=== PATIENT | female | born 1985 | race Hispanic/Latino ===

== ENCOUNTER 2019-07-10 07:11 | Inpatient (IN) | payer BC ==
[~2019-07-10] VITALS: Ht 154.9 cm; Wt 87.5 kg
[2019-07-10] MEDS ORDERED: LACTATED RINGERS 1000ML 1,000 ML IV PRN (08:02)
[2019-07-10] MEDS ORDERED: ROPIVACAINE 0.2% 100ML VIAL 100 ML EP SCH (08:15)
[2019-07-10] MEDS ORDERED: OXYTOCIN 10 USP UNITS/ML 20 UNIT in LACTATED RINGERS 1000ML 1,000 ML IV SCH (08:15)
[2019-07-10] MEDS ORDERED: NALOXONE HCL 0.4 MG/1 ML ML IV PRN (08:15)
[2019-07-10] MEDS ORDERED: EPHEDRINE SULFATE 50 MG/ML AMPULE IVP PRN (08:15)
[2019-07-10] MEDS ORDERED: PROMETHAZINE HCL 25 MG/ML 1ML AMPULE IM PRN (08:15)
[2019-07-10] MEDS ORDERED: MEPERIDINE-PF 50 MG/ML SYG IVP PRN (08:15)
[2019-07-10] MEDS ORDERED: LACTATED RINGERS 500 ML 500 ML IV PRN (08:15)
[2019-07-10] MEDS ORDERED: OXYTOCIN-LR 20 UNITS/1000 ML 1,000 ML IV SCH (08:15)
[2019-07-10 08:16] LABS: HEMATOCRIT 31.3 % (36-48); MEAN CORPUSCULAR HGB CONC 33.6 g/dL (32.0-36.0); MEAN CORPUSCULAR VOLUME 83.3 fL (79-99); NUCLEATED RED BLOOD CELLS 0.1 % (0.0-0.19); PLATELET COUNT (AUTO) 361 K/uL (130-400); RED BLOOD CELL COUNT(AUTO) 3.76 MIL/uL (4.00-5.50); RED CELL DISTRIBUTION WIDTH 14.5 % (11.0-15.5); WHITE BLOOD COUNT (AUTO) 9.4 K/uL (4.8-10.8)
[2019-07-10 08:24] LABS: APPEARANCE,URINE Clear (CLEAR); BILIRUBIN,URINE Negative (NEGATIVE); COLOR,URINE Yellow (YELLOW); GLUCOSE, URINE (UA) Negative (NEGATIVE); KETONES,URINE Negative (NEGATIVE); LEUKOCYTE ESTERASE ,URINE Moderate (NEGATIVE); NITRATE,URINE Negative (NEGATIVE); OCCULT BLOOD,URINE Small (NEGATIVE); PROTEIN,URINE Trace mg/dL (NEGATIVE)
[2019-07-10 08:31] LABS: AMPHET/METH SCREEN,URINE NEGATIVE (NEGATIVE); BARBITURATE SCREEN, URINE NEGATIVE (NEGATIVE); BENZODIAZEPINES SCREEN,URINE NEGATIVE (NEGATIVE); CANNABINOID SCREEN,URINE NEGATIVE (NEGATIVE); COCAINE SCREEN,URINE NEGATIVE (NEGATIVE); OPIATE SCREEN,URINE POSITIVE (NEGATIVE); PHENCYCLIDINE SCREEN,URINE NEGATIVE (NEGATIVE)
[2019-07-10 08:45] LABS: BACTERIA,URINE Rare /HPF (None Seen); SQUAMOUS EPITHELIAL CELL,UR Few /HPF (0-2); WBC,URINE 0-1 /HPF (0-1)
[2019-07-11 07:12] LABS: HEPATITIS Bs ANTIGEN SCREEN P Negative (Negative)
== END 2019-07-10 17:55 | disposition home or self-care (01) | DRG 951 ==
LOC: LDH 07:11
PROVIDERS: ADMIT Specialist; ATTEND Specialist
DX: Z34.83 Encounter for supervision of other normal pregnancy, third trimester (principal); Z3A.39 39 weeks gestation of pregnancy
CPT/HCPCS: 36415; 80305; 81001; 85027; 86592; 86850; 86900; 86901; 87340; 96360; 96361; G0378; J2590; J7120

== ENCOUNTER 2019-07-14 11:03 | Inpatient (IN) | payer BC ==
[~2019-07-14] VITALS: Ht 152.4 cm; Wt 87.1 kg
[2019-07-14] MEDS ORDERED: LACTATED RINGERS 1000ML 1,000 ML IV PRN (11:27)
[2019-07-14] MEDS ORDERED: OXYTOCIN-LR 20 UNITS/1000 ML 1,000 ML IV SCH ×2 (11:30→17:15)
[2019-07-14] MEDS ORDERED: NALOXONE HCL 0.4 MG/1 ML ML IV PRN (11:30)
[2019-07-14] MEDS ORDERED: MEPERIDINE-PF 50 MG/ML SYG IVP PRN (11:30)
[2019-07-14] MEDS ORDERED: EPHEDRINE SULFATE 50 MG/ML AMPULE IVP PRN (11:30)
[2019-07-14] MEDS ORDERED: PROMETHAZINE HCL 25 MG/ML 1ML AMPULE IM PRN (11:30)
[2019-07-14] MEDS ORDERED: ROPIVACAINE 0.2% 100ML VIAL 100 ML EP SCH (11:30)
[2019-07-14] MEDS ORDERED: LACTATED RINGERS 500 ML 500 ML IV PRN (11:30)
[2019-07-14 11:42] LABS: HEMATOCRIT 31.6 % (36-48); MEAN CORPUSCULAR HEMOGLOBIN 28.1 pg (27.0-33.0); MEAN CORPUSCULAR HGB CONC 34.1 g/dL (32.0-36.0); MEAN CORPUSCULAR VOLUME 82.4 fL (79-99); NUCLEATED RED BLOOD CELLS 0.2 % (0.0-0.19); PLATELET COUNT (AUTO) 422 K/uL (130-400); RED BLOOD CELL COUNT(AUTO) 3.83 MIL/uL (4.00-5.50); RED CELL DISTRIBUTION WIDTH 14.1 % (11.0-15.5); WHITE BLOOD COUNT (AUTO) 10.9 K/uL (4.8-10.8)
[2019-07-14 12:33] LABS: APPEARANCE,URINE Clear (CLEAR); BILIRUBIN,URINE Negative (NEGATIVE); COLOR,URINE Yellow (YELLOW); GLUCOSE, URINE (UA) Negative (NEGATIVE); KETONES,URINE Negative (NEGATIVE); LEUKOCYTE ESTERASE ,URINE Trace (NEGATIVE); NITRATE,URINE Negative (NEGATIVE); OCCULT BLOOD,URINE Trace (NEGATIVE); PROTEIN,URINE Trace mg/dL (NEGATIVE); UROBILINOGEN,URINE 0.2 mg/dL (0.2-1.0)
[2019-07-14 12:38] LABS: BACTERIA,URINE Rare /HPF (None Seen); RBC,URINE 0-1 /HPF (0-1); SQUAMOUS EPITHELIAL CELL,UR Few /HPF (0-2); WBC,URINE 0-1 /HPF (0-1)
[2019-07-14 12:40] LABS: AMPHET/METH SCREEN,URINE NEGATIVE (NEGATIVE); BARBITURATE SCREEN, URINE NEGATIVE (NEGATIVE); BENZODIAZEPINES SCREEN,URINE POSITIVE (NEGATIVE); CANNABINOID SCREEN,URINE NEGATIVE (NEGATIVE); COCAINE SCREEN,URINE NEGATIVE (NEGATIVE); OPIATE SCREEN,URINE NEGATIVE (NEGATIVE); PHENCYCLIDINE SCREEN,URINE NEGATIVE (NEGATIVE)
[2019-07-14] MEDS ORDERED: WITCH HAZEL 1 PAD TP PRN (18:30)
[2019-07-14] MEDS ORDERED: LANOLIN 30GM OINTMENT TP PRN (18:30)
[2019-07-14] MEDS ORDERED: BENZOCAINE/LANOLIN/ALOE VERA 60 ML AEROSOL TP PRN (18:30)
[2019-07-14] MEDS: DOCUSATE SODIUM 100 MG CAP PO SCH (20:46)
[2019-07-14 21:35] VITALS: BP 139/72
--- NOTE | 2019-07-14 21:40 | NUR ---
Received patient from L&D: Patient came in via wheelchair accompanied by Re Gonsalves RN. IV fluid infusing LR with 20 units Pitocin regulated at 125 ml/hour. Plan of care discussed with patient verbalizes understanding.
[2019-07-14] MEDS: IBUPROFEN 600 MG TABLET PO PRN (21:59)
[2019-07-14 23:05] VITALS: BP 129/75
[2019-07-15 03:15] VITALS: BP 120/66
[2019-07-15 07:14] LABS: HEPATITIS Bs ANTIGEN SCREEN P Negative (Negative)
[2019-07-15 08:00] VITALS: BP 122/74
[2019-07-15] MEDS: DOCUSATE SODIUM 100 MG CAP PO SCH ×2 (08:14→23:21)
[2019-07-15] MEDS: IBUPROFEN 600 MG TABLET PO PRN ×2 (08:15→18:57)
[2019-07-15 11:51] VITALS: BP 115/65
--- NOTE | 2019-07-15 14:30 | NUR ---
SS/CM: Trigger received for +UDS(benzo). Met with pt this afternoon to discuss +UDS. Per pt she has an old prescription for hydrocodone which she was taking occasionally prior to being . She mentions however; that recently she began having increased back pain and was taking 1/2pill approx every 5days if needed. Informed pt that her UDS came back + for benzodiazepine, she mentions that she does not take any of those medications. Pt became teary eyed and stated her mother just approx 3months ago and her younger brother has been taking it pretty hard. She mentions that he went to see a behavioral health professional who prescribed Xanax under the direction that Mrs Montoya be the one to hold the medication and administer it. She states that maybe she mistook it for one of her own medications and took his Xanax instead. Pt states that she lives w her spouse Ari Burt, her 16 yo Shaylee Gonsalves, 13 yo Giovanna Gonsalves and 6 yo Paco Burt. Pt states that her child does have ADHD and takes medication. She mentions that she is planning to name her NB Elvia Jimenez (in honor of her mother) Javed. Pt states that she has all the necessary items for baby at home. She mentions that she has chosen Dr. Delarosa as babys rn prior authorization. Pt states that she has a good support system @ home. She mentions that her is going to take a couple days off and that her mother in law and sisters will be avail to assist. Addendum: 07/15/19 at 1711 by YAMILET KRAUS CM Amended: Links added.
--- NOTE | 2019-07-15 15:10 | NUR ---
CPS: Report called into [facility]PS @ this time. Spoke w Amanda ID [id number], reference #[id number]. She mentions that she will label it a priority 1 and notify local medical equipment sales.
[2019-07-15 15:33] VITALS: BP 133/83
--- NOTE | 2019-07-15 16:45 | NUR ---
CPS SW: Received call back from [facility] ([phone]). She mentions that she will be in to see baby and mom within the next 5-10mins. Baby's primary nurse and [facility] informed.
[2019-07-15 19:43] VITALS: BP 138/86
[2019-07-15 23:23] VITALS: BP 120/68
[2019-07-16] MEDS: IBUPROFEN 600 MG TABLET PO PRN ×2 (00:57→08:42)
[2019-07-16 03:16] VITALS: BP 120/74
--- NOTE | 2019-07-16 07:50 | NUR ---
PATIENT ASSESSED AND PATIENT C/O HAVING GENERALIZED ACHES AND WILL MEDICATE WITH MOTRIN AFTER BREAKFAST. PATIENT HAS 1+ EDEMA BILATERALLY TO LOWER EXTREMITIES AND HAS BEEN AMBULATING TO NURSERY TO VISIT WITH BABY FREQUENTLY. PATIENT STATES HAVING A BM LAST NIGHT AND MOVING BOWELS OKAY.
[2019-07-16 08:27] VITALS: BP 132/67
[2019-07-16] MEDS: DOCUSATE SODIUM 100 MG CAP PO SCH (08:42)
--- NOTE | 2019-07-16 09:30 | NUR ---
DR. BRADLEY ROUNDED AND DISCHARGED PATIENT TO HOME. PATIENT STABLE AT THIS TIME.
[2019-07-16 12:10] VITALS: BP 142/89
--- NOTE | 2019-07-16 13:15 | NUR ---
PATIENT WAS GIVEN DISCHARGED INSTRUCTIONS AND WAS ENCOURAGED TO TAKE MOTRIN OVER THE COUNTER NEEDED FOR PAIN. NO SCRIPT ISSUED FOR MOTRIN BY DR. BRADLEY.
--- NOTE | 2019-07-16 13:30 | NUR ---
PATIENT WAS TAKEN VIA W/C TO FAMILY VEHICLE. NOT DISCHARGE AND PATIENT VISITED WITH BABY A COUPLE OF TIMES BEFORE GOING HOME. PATIENT IS STABLE AND DENIES PAIN.
== END 2019-07-16 13:30 | disposition home or self-care (01) | DRG 806 ==
LOC: OBSVTOIN 11:03 → LDH 11:03 → WSH 21:30
PROVIDERS: ADMIT Specialist; ATTEND Specialist
PROC: 10E0XZZ Delivery of Products of Conception, External Approach (ICD-10-PCS; principal; 2019-07-14)
PROC: 3E0R3BZ Introduction of Anesthetic Agent into Spinal Canal, Percutaneous Approach (ICD-10-PCS; 2019-07-14)
PROC: 00HU33Z Insertion of Infusion Device into Spinal Canal, Percutaneous Approach (ICD-10-PCS; 2019-07-14)
PROC: 10907ZC Drainage of Amniotic Fluid, Therapeutic from Products of Conception, Via Natural or Artificial Opening (ICD-10-PCS; 2019-07-14)
PROC: 0UQGXZZ Repair Vagina, External Approach (ICD-10-PCS; 2019-07-14)
DX: O69.81X0 Labor and delivery complicated by cord around neck, without compression, not applicable or unspecified (principal); O71.4 Obstetric high vaginal laceration alone; Z37.0 Single live birth; O99.324 Drug use complicating childbirth; O77.0 Labor and delivery complicated by meconium in amniotic fluid; Z3A.39 39 weeks gestation of pregnancy; F13.90 Sedative, hypnotic, or anxiolytic use, unspecified, uncomplicated
CPT/HCPCS: 36415; 80305; 81001; 85027; 86592; 86850; 86900; 86901; 87340; 88307; A4314; G0378; J2590; J2795

== ENCOUNTER 2020-02-27 10:34 | Day surgery (SDC) | payer BC ==
[2020-02-27] VITALS (21 sets, daily range): BP systolic 102–135; BP diastolic 35–87
[~2020-02-27] VITALS: Ht 152.4 cm; Wt 75.3 kg
[~2020-02-27 10:34] MED LIST: AMPH30TA3 PO; HYDR-4068 PO
[2020-02-27] MEDS ORDERED: LACTATED RINGERS 1000ML 1,000 ML IV ONE (11:37)
[2020-02-27 12:03] LABS: HEMATOCRIT 33.7 % (36-48); MEAN CORPUSCULAR HEMOGLOBIN 28.8 pg (27.0-33.0); MEAN CORPUSCULAR HGB CONC 31.5 g/dL (32.0-36.0); MEAN CORPUSCULAR VOLUME 91.6 fL (79-99); RED BLOOD CELL COUNT(AUTO) 3.68 MIL/uL (4.00-5.50); RED CELL DISTRIBUTION WIDTH 12.5 % (11.0-15.5); WHITE BLOOD COUNT (AUTO) 6.7 K/uL (4.8-10.8)
[2020-02-27] MEDS ORDERED: DEXAMETHASONE SOD PHOSPHATE 10MG/ML 1ML VIAL ONE (12:54)
[2020-02-27] MEDS ORDERED: LIDOCAINE PF 2% 5ML ABBOJECT ONE (12:54)
[2020-02-27] MEDS ORDERED: MIDAZOLAM HCL 1 MG/ML 2ML VIAL ONE (12:54)
[2020-02-27] MEDS ORDERED: GLYCOPYRROLATE 1 MG/5 ML SYRINGE ONE (12:54)
[2020-02-27] MEDS ORDERED: FENTANYL CITRATE PF 50 MCG/1 ML 2ML VIAL ONE ×2 (12:55→13:22)
[2020-02-27] MEDS ORDERED: PROPOFOL 10 MG/ML 20ML VIAL IV ONE (12:55)
[2020-02-27] MEDS ORDERED: ROCURONIUM 10MG/1ML SYR 10 MG/ML ML ONE (12:55)
[2020-02-27] MEDS ORDERED: NEOSTIGMINE 5MG/5ML SYR IV ONE (12:55)
[2020-02-27] MEDS ORDERED: ONDANSETRON HCL 4 MG/2 ML VIAL ONE (12:55)
[2020-02-27] MEDS ORDERED: EPHEDRINE SULFATE 50 MG/ML AMPULE ONE (13:21)
[2020-02-27] MEDS ORDERED: OXYTOCIN 10 USP UNITS/ML ONE (13:28)
[2020-02-27] MEDS ORDERED: MEPERIDINE-PF 25 MG/ML SYG ONE ×2 (14:19→15:02)
[2020-02-27] MEDS ORDERED: MORPHINE SULFATE 2 MG/ML 1ML SYG ONE (14:45)
--- NOTE | 2020-02-27 15:35 | NUR ---
PT ARRIVED TO DAY PATIENT VIA STRETCHER BY ROGER RUTHERFORD. PATIENT AAOX3, RESPIRATIONS UNLABORED, VITAL SIGNS STABLE. PATIENT C/O PAIN AND PRESSURE TO ABDOMEN AREA. PATIENT RATES PAIN AT A 5 OUT OF 10. Addendum: 02/27/20 at 1737 by HERNANDO MAR RN RN VERY MINIMAL BLEEDING NOTED TO [facility] PAD
[2020-02-27] MEDS ORDERED: ACETAMINOPHEN-CODEINE 300/30MG TAB ONE (16:23)
--- NOTE | 2020-02-27 16:26 | NUR ---
ADMINISTERED TYLENOL #3 TO PATIENT DUE TO PATIENT HAVING ABDOMINAL PAIN/PRESSURE. PATIENT RATES PAIN AT A 5 OUT OF 10.
--- NOTE | 2020-02-27 16:30 | NUR ---
DISCHARGE INSTRUCTIONS PROVIDED OVER THE PHONE TO PATIENT'S SPOUSE (SHEA). FOLLOW UP APPOINTMENT PROVIDED AND PRESCRIPTION PROVIDED FOR PAIN MEDICATION. HANDOUTS PROVIDED TO PATIENT AND PATIENT'S SPOUSE. ALL QUESTIONS/CONCERNS ADDRESSED.
--- NOTE | 2020-02-27 17:00 | NUR ---
PATIENT STATES RELIEF FROM PAIN, RATES PAIN AT A 3 OUT OF 1O. PATIENT DISCHARGED FROM FACILITY VIA WHEELCHAIR BY NURSE AND ASSISTED INTO PRIVATE VEHICLE DRIVEN BY SPOUSE.
== END 2020-02-27 17:00 | disposition home or self-care (01) ==
LOC: DAH 10:34
PROVIDERS: ATTEND Specialist
DX: Z30.2 Encounter for sterilization (principal); O03.4 Incomplete spontaneous abortion without complication; Z90.79 Acquired absence of other genital organ(s); I10 Essential (primary) hypertension; E11.9 Type 2 diabetes mellitus without complications; F98.8 Other specified behavioral and emotional disorders with onset usually occurring in childhood and adolescence
CPT/HCPCS: 36415; 58671; 59812; 85027; 86850; 86900; 86901; A4215 ×2; A4221; A4222; A4223; A4264; A4351; A4663; C1769; J1100; J2001; J2175 ×2; J2250; J2405; J2590; J2704; J2710; J3010 ×2; J3490 ×2; J7030; J7120 ×2